=== PATIENT | male | born 1995 | race Caucasian/White ===

== ENCOUNTER 2018-10-08 13:58 | Emergency (ER) | payer MEDICAID ==
[~2018-10-08] VITALS: Ht 182.9 cm; Wt 85.0 kg
[~2018-10-08 13:58] MED LIST: DOXY150T3 PO
[2018-10-08 14:04] VITALS: BP 110/65
== END 2018-10-08 15:34 | disposition home or self-care (01) ==
LOC: ER 13:59
DX: S81.811D Laceration without foreign body, right lower leg, subsequent encounter (principal); W23.0XXD Caught, crushed, jammed, or pinched between moving objects, subsequent encounter
CPT/HCPCS: 99282